=== PATIENT | female | born 1970 | race Caucasian/White ===

== ENCOUNTER → 2016-04-25 | Outpatient (CLI) | payer MEDICAID ==
[2016-04-25 12:02] LABS: MEAN CORPUSCULAR HEMOGLOBIN 27.1 PG (26.0-34.0); MEAN CORPUSCULAR HGB CONC 32.5 g/dL (31.0-37.0); MEAN CORPUSCULAR VOLUME 83 FL (80-100); MEAN PLATELET VOLUME 9.8 FL (6.0-9.5); PLATELET COUNT 645 10^3uL (150-450); WHITE BLOOD COUNT 9.23 10^3uL (4.0-11.0)
[2016-04-25 12:30] LABS: BAND NEUTROPHILS % 0 % (0-6); EOSINOPHILS % 3 % (0-4); LYMPHOCYTES # 2.5 #; MONOCYTES # 0.4 #; MONOCYTES % 4 % (3-11); RBC MORPH NORMAL (NORMAL); SEGMENTED NEUTROPHILS % 66 % (51-67); TOTAL CELLS COUNTED 100
== END ==
LOC: LAB 11:43
PROVIDERS: ATTEND Internal Medicine Hematology & Oncology
DX: D47.3 Essential (hemorrhagic) thrombocythemia (principal)
CPT/HCPCS: 36415; 85025

== ENCOUNTER → 2016-06-08 | Outpatient (REF) | payer MEDICAID ==
[~2016-06-08] MED LIST: ASPI-586 PO
[2016-06-08 12:12] LABS: ALBUMIN 4.5 g/dL (3.4-5.0); ALKALINE PHOSPHATASE 91 U/L (38-126); TOTAL PROTEIN 8.3 g/dL (6.4-8.5)
== END ==
LOC: LAB 10:18
PROVIDERS: ATTEND Nurse Practitioner Family
DX: E78.2 Mixed hyperlipidemia (principal)
CPT/HCPCS: 80061; 80076; 83721

== ENCOUNTER → 2016-06-13 | Outpatient (CLI) | payer MEDICAID ==
[2016-06-13 14:07] LABS: BASOPHILS % (AUTO) 1 % (0-2); EOSINOPHILS # (AUTO) 0.3 10^3uL; EOSINOPHILS % (AUTO) 4 % (0-4); LYMPHOCYTES # (AUTO) 2.6 X10^3; MEAN CORPUSCULAR HGB CONC 32.8 g/dL (31.0-37.0); MEAN CORPUSCULAR VOLUME 83 FL (80-100); MEAN PLATELET VOLUME 9.8 FL (6.0-9.5); MONOCYTES # (AUTO) 0.5 X10^3; MONOCYTES % (AUTO) 6 % (3-11); NEUTROPHILS # (AUTO) 5.5 X10^3; NEUTROPHILS % (AUTO) 62 % (51-67); PLATELET COUNT 597 10^3uL (150-450); WHITE BLOOD COUNT 8.94 10^3uL (4.0-11.0)
[2016-06-13 14:11] LABS: BILIRUBIN,URINE Negative (Negative); CLARITY,URINE Clear; COLOR,URINE Yellow; GLUCOSE, URINE (UA) Negative (Negative); LEUKOCYTE ESTERASE ,URINE Negative (Negative); PH,URINE 6.5 (5.0 - 8.0); UROBILINOGEN,URINE 0.2 mg/dL (0.2-1.0)
[2016-06-13 14:24] LABS: URINE CENTRIFUGED VOLUME 12 mL
[2016-06-13 14:33] LABS: ANION GAP 15.9 MEQ/L (3-15)
== END ==
LOC: LAB 13:52
PROVIDERS: ATTEND Internal Medicine Hematology & Oncology
DX: R53.83 Other fatigue (principal); D47.3 Essential (hemorrhagic) thrombocythemia
CPT/HCPCS: 36415; 80048; 81003; 81015; 82607; 83036; 84443; 85025